=== PATIENT | female | born 1995 | race Two or more races ===

== ENCOUNTER 2024-05-19 04:48 | Emergency (ER) | payer OTHER ==
[~2024-05-19] VITALS: Ht 167.6 cm; Wt 65.8 kg
[2024-05-19] MEDS ORDERED: EFFEXOR XR150 MG PO (04:54)
[2024-05-19] MEDS ORDERED: DOXYCYCLINE HY100 MG PO (04:55)
[2024-05-19] MEDS ORDERED: ONDANSETRON HCL 2 MG/ML VIAL IV ONE (05:00)
[2024-05-19] MEDS ORDERED: 0.9 % SODIUM CHLORIDE 1,000 ML IV SCH (05:00)
[2024-05-19] MEDS ORDERED: FAMOTIDINE/PF 20 MG in 0.9 % SODIUM CHLORIDE 8 ML IV PUSH STA (05:01)
[2024-05-19] MEDS ORDERED: ONDANSETRON HCL 2 MG/ML VIAL ONE (05:03)
[2024-05-19] MEDS ORDERED: FAMOTIDINE/PF 20 MG/2 ML VIAL ONE (05:03)
[2024-05-19] MEDS ORDERED: METOCLOPRAMIDE HCL 10 MG in DEXTROSE 5 % IN WATER 50 ML IV ONE (06:30)
== END 2024-05-19 07:45 | disposition home or self-care (01) ==
LOC: ER 04:48
DX: F10.10 Alcohol abuse, uncomplicated (principal)